=== PATIENT | male | born 1990 | race Caucasian/White ===

== ENCOUNTER 2020-04-07 10:48 | Inpatient (IN) ==
[2020-04-07 10:57] VITALS: BMI 29.8
[2020-04-07] MEDS ORDERED: ZOFRAN INJ 4 MG VIAL IVP ONE (11:28)
[2020-04-07] MEDS ORDERED: NS 1000 ML 1,000 ML IV ONE ×2 (11:28→12:33)
--- NOTE | 2020-04-07 11:28 | DR.ABDMALE ---
HPI Time seen Time Seen by Provider: 04/07/20 11:01 PCP Primary Care Physician: NONE HPI comment HPI Comment: PATIENT WITH A HISTORY OF DIVERTICULITIS, COMPLAINS OF SEVERE PAIN OVER RIGHT SIDE OF HIS ABDOMEN PAST 2 DAYS, HAS EMESIS YESTERDAY X 12 EPISODES. DENIES EMESIS TODAY, FEVER, CHILLS. HAS DIMINISHED URINE OUTPUT, DENIES DIARRHEA, Complaint Chief Complaint Doctors Comments: SEVERE ABDOMINAL PAIN X 2 DAYS Chief Complaint:: STARTED WITH SEVERE VOMITING WEDNESDAY 04/05, HE HAS HAD ABDOMINAL XRAY, LABS, UA IN [facility] 04/06 Self Treatment fo Chief Complaint: SEE ABOVE Mode of arrival Mode of Arrival: Ambulatory Timing Onset of Chief Complaint: 04/06/20 PMH PMH Past Medical History: No Past Medical History Comment: DIVERTICULITIS Past Surgical History: Yes Past Surgical History Comment: NECK SURGERY Family History History of Family Medical Conditions: Yes Family Medical History: Diabetes Mellitus, Cancer and Coronary Artery Disease Social History Does patient currently use any type of tobacco product: No Have you used tobacco products in the last 12 months: No Type of Tobacco Use: None Does any household member use tobacco: No Alcohol Use: Occasionally Do you use any recreational Drugs:: No Lives With: Dad and Mom Lives Where: Home Infectious screening In the last 2 months have you had wt loss of >10#?: NO Have you had fever, night sweats or hemotysis?: No Have you traveled outside the country in the last 6 months?: No Isolation: Standard ROS Review of Systems Constitutional: See HPI Eyes: No Symptoms Reported ENTM: No Symptoms Reported Respiratoy: No Symptoms Reported Cardiovascular: No Symptoms Reported Gastrointestinal/Abdominal: See HPI, Abdominal Pain (SEVERE RIGHT SIDED ABDOMINAL PAIN) and Vomiting Genitourinary: No Symptoms Reported Neurological: No Symptoms Reported Musculoskeletal: No Symptoms Reported Integumentary: No Symptoms Reported Hematologic/Lymphatic: No Symptoms Reported Endocrine: No Symptoms Reported Psychiatric: No Symptoms Reported All Other Systems: Reviewed and Negative PE Vital Signs Vital Signs: Temp Pulse Pulse Resp BP BP Pulse Ox 04/07/20 19:15 95 H 18 106/57 94 L 04/07/20 19:10 110 H 18 103/55 96 04/07/20 19:05 94 H 18 103/52 98 04/07/20 18:55 98.2 F 113 H 18 115/58 98 04/07/20 13:00 110 H 20 116/58 97 04/07/20 12:28 20 04/07/20 12:26 18 04/07/20 11:58 20 04/07/20 11:56 20 04/07/20 10:51 98.8 F 132 H 20 136/69 99 General Limitations: No Limitations General Appearance: Alert and In No Apparent Distress Head Head Exam: Normal Inspection Eyes Eye exam: Normal Appearance ENT ENT Exam: Normal Exam Neck Neck Exam: Normal Inspection Chest Chest Inspection: Normal Inspection Respiratory Respiratory Exam: Normal Lung Sounds Bilat Cardiovascular Cardiovascular Exam: Regular Rate and Normal Rhythm Abdominal Exam Abdominal Exam: Normal Inspection, Normal Bowel Sounds, Soft and Tenderness (MARKED RIGHT LOWER ABDOMINAL TENDERNESS OVER MCBURNEY, WITH GUARDING AND REBOUND TENDERNESS) Abdominal Tenderness: RLQ Rectal Rectal Exam: Deferred Back Back Exam: Normal Inspection and (R) CVA Tenderness (MODERATE RIGHT CVA TENDERNESS) Extremeties Extremities Exam: Normal Inspection Exam: Male: Deferred Neurologic Neurological Exam: Alert and Oriented X3 Psychiatric Psychiatric Exam: Normal Affect and Normal Mood Skin Skin Exam: Warm, Dry, Intact and Normal Color MDM Differential Diagnosis Differential Diagnosis: Appendicitis, Diverticular disease and Urolithiasis COURSE Treatment Treatment: ADMINISTERED BOLUS NORMAL SALINE 1 LITER/HR, ZOFRAN 4MG, DILAUDID 2MG IV, MARKEDLY IMPROVEMENT IN PAIN, AFTER 2 SETS OF BLOOD CULTURES ADMINISTERED ZOSYN 4.5GM IVPB Consultation Consultation Comments: DISCUSSED WITH DR CASTANO AT 1500 FOR EVALUATION IN EMERGENCY ROR Labs Reviewed Result Diagrams: 04/09/20 09:52 04/09/20 09:52 Laboratory: 04/07/20 11:59 Blood Blood Culture - Final 04/07/20 11:50 Blood Blood Culture - Final WBC 14.8 X10^3/uL (3.6-10.0) H 04/07/20 11:50 RBC 5.15 X10^6/uL (4.7-6.0) 04/07/20 11:50 Hgb 15.6 g/dL (13.5-18.0) 04/07/20 11:50 Hct 45.0 % (42.0-54.0) 04/07/20 11:50 MCV 87.4 fL (80.0-100.0) 04/07/20 11:50 MCH 30.3 pg (27.0-34.0) 04/07/20 11:50 MCHC 34.7 g/dL (33.0-35.0) 04/07/20 11:50 RDW 13.3 % (11.6-16.5) 04/07/20 11:50 Plt Count 178 X10^3/uL (150.0-450.0) 04/07/20 11:50 MPV 8.4 fL (7.4-11.0) 04/07/20 11:50 Neut % (Auto) 84.9 % (42.0-75.0) H 04/07/20 11:50 Lymph % (Auto) 8.8 % (21.0-51.0) L 04/07/20 11:50 [place] % (Auto) 6.0 % (0.0-13.0) 04/07/20 11:50 Eos % (Auto) 0.1 % (0.9-2.9) L 04/07/20 11:50 Baso % (Auto) 0.2 % (0.2-1.0) 04/07/20 11:50 Neut # (Auto) 12.6 x10^3/uL (2.2-4.8) H 04/07/20 11:50 Lymph # (Auto) 1.3 X10^3/uL (1.3-2.9) 04/07/20 11:50 [place] # (Auto) 0.9 x10^3/uL (0.3-0.8) H 04/07/20 11:50 Eos # (Auto) 0.0 x10^3/uL (0.0-0.2) 04/07/20 11:50 Baso # (Auto) 0.0 X10^3/uL (0.0-0.1) 04/07/20 11:50 Absolute Nucleated RBC 0.1 /100WBC 04/07/20 11:50 Sodium 135 mmol/L (136-145) L 04/07/20 11:50 Corrected Sodium TNP 04/07/20 11:50 Potassium 4.0 mmol/L (3.5-5.1) 04/07/20 11:50 Chloride 97 mmol/L (98-107) L 04/07/20 11:50 Carbon Dioxide 29.2 mmol/L (21-32) 04/07/20 11:50 BUN 16 mg/dL (7-18) 04/07/20 11:50 Creatinine 1.04 mg/dL (0.70-1.30) 04/07/20 11:50 Est GFR (MDRD) Af Amer > 60 (>60) 04/07/20 11:50 Est GFR (MDRD) Non-Af > 60 (>60) 04/07/20 11:50 Glucose 107 mg/dL (65-99) H 04/07/20 11:50 Calcium 8.7 mg/dL (8.5-10.1) 04/07/20 11:50 Corrected Calcium TNP 04/07/20 11:50 Total Bilirubin 0.80 mg/dL (0.2-1.0) 04/07/20 11:50 AST 23 Units/L (15-37) 04/07/20 11:50 ALT 57 Units/L (12-78) 04/07/20 11:50 Alkaline Phosphatase 60 Units/L (46-116) 04/07/20 11:50 Total Protein 7.2 g/dL (6.4-8.2) 04/07/20 11:50 Albumin 3.7 g/dL (3.4-5.0) 04/07/20 11:50 Globulin 3.5 g/dL (2.5-4.5) 04/07/20 11:50 Albumin/Globulin Ratio 1.1 Ratio (1.1-2.1) 04/07/20 11:50 Amylase 24 Units/L (25-115) L 04/07/20 11:50 Lipase 50 Units/L (73-393) L 04/07/20 11:50 Specimen Type Random urine 04/07/20 14:24 Urine Color Peggy (YELLOW) 04/07/20 14:24 Urine Appearance Slightly hazy (CLEAR) 04/07/20 14:24 Urine pH 6.0 (5.0 - 8.0) 04/07/20 14:24 Ur Specific [place] 1.025 (1.000-1.030) 04/07/20 14:24 Urine Protein 2+ (NEGATIVE) 04/07/20 14:24 Urine Glucose (UA) Negative (NEGATIVE) 04/07/20 14:24 Urine Ketones 3+ (NEGATIVE) 04/07/20 14:24 Urine Occult Blood 2+ (NEGATIVE) 04/07/20 14:24 Urine Nitrite Negative (NEGATIVE) 04/07/20 14:24 Urine Bilirubin Negative (NEGATIVE) 04/07/20 14:24 Urine Urobilinogen 1+ (NORMAL) 04/07/20 14:24 Ur Leukocyte Esterase 1+ (NEGATIVE) 04/07/20 14:24 Urine RBC 3-5 /HPF (0-3) A 04/07/20 14:24 Urine WBC 0-2 /HPF (0-5) 04/07/20 14:24 Ur Squamous Epith Cells Rare /HPF (NEGATIVE) 04/07/20 14:24 Urine Bacteria Trace /HPF (NEGATIVE) 04/07/20 14:24 Urine Mucus Few /HPF (NEGATIVE) 04/07/20 14:24 Ur Culture Indicated? No/not indicated 04/07/20 14:24 SARS CoV-2 RNA Rapid BONNIE Negative (NEGATIVE) 04/07/20 16:25 Tissue Pathology To follow 04/07/20 18:30 XRAY XRAY Interpreted by: Radiologist (ACUTE APPENDICITIS, DILATED APPENDIX 2CM, SURROUNDING INFLAMMATION) Opioid Opioid Risk Tool Total: 0 Total Score Risk Category: Low Risk Copyright: Pavan CARMICHAEL predicting aberrant behaviors Diagnosis Discharge Problem: Acute appendicitis Instructions Instructions: Hand Washing, [id number] Wound Check Laparoscopic Appendectomy, Adult, Care After, [id number] Pain Medicine Instructions, [id number] Appendicitis, [id number] Preventing Constipation After Surgery Forms: Excuse From Work Precautions for COVID19 Patient Portal Social Distancing
[2020-04-07] MEDS ORDERED: DILAUDID INJ ONE (11:40)
[2020-04-07] MEDS ORDERED: ZOFRAN INJ 4 MG VIAL ONE (11:41)
[2020-04-07] MEDS ORDERED: NS 1000 ML 1,000 ML ONE ×2 (11:41→15:07)
[2020-04-07] MEDS: DILAUDID INJ IVP STA ×2 (11:56→11:58)
[2020-04-07 12:16] LABS: BASOPHILS % (AUTO) 0.2 % (0.2-1.0); EOSINOPHILS % (AUTO) 0.1 % (0.9-2.9); HEMOGLOBIN 15.6 g/dL (13.5-18.0); LYMPHOCYTES # (AUTO) 1.3 X10^3/uL (1.3-2.9); LYMPHOCYTES % (AUTO) 8.8 % (21.0-51.0); MEAN CORPUSCULAR HEMOGLOBIN 30.3 pg (27.0-34.0); MEAN CORPUSCULAR HGB CONC 34.7 g/dL (33.0-35.0); MEAN CORPUSCULAR VOLUME 87.4 fL (80.0-100.0); MEAN PLATELET VOLUME 8.4 fL (7.4-11.0); MONOCYTES # (AUTO) 0.9 x10^3/uL (0.3-0.8); NEUTROPHILS # (AUTO) 12.6 x10^3/uL (2.2-4.8); NEUTROPHILS % (AUTO) 84.9 % (42.0-75.0); PLATELET COUNT 178 X10^3/uL (150.0-450.0); RED BLOOD COUNT 5.15 X10^6/uL (4.7-6.0); RED CELL DISTRIBUTION WIDTH 13.3 % (11.6-16.5); WHITE BLOOD COUNT 14.8 X10^3/uL (3.6-10.0)
[2020-04-07 12:26] LABS: ALANINE AMINOTRANSFERASE 57 Units/L (12-78); ALBUMIN 3.7 g/dL (3.4-5.0); ALKALINE PHOSPHATASE 60 Units/L (46-116); AMYLASE 24 Units/L (25-115); ASPARTATE AMINO TRANSFERASE 23 Units/L (15-37); BLOOD UREA NITROGEN 16 mg/dL (7-18); CALCIUM 8.7 mg/dL (8.5-10.1); CARBON DIOXIDE 29.2 mmol/L (21-32); CHLORIDE 97 mmol/L (98-107); CREATININE 1.04 mg/dL (0.70-1.30); LIPASE 50 Units/L (73-393); SODIUM 135 mmol/L (136-145); TOTAL PROTEIN 7.2 g/dL (6.4-8.2); eGFR NON BLACK RACES > 60 (>60)
[2020-04-07] MEDS ORDERED: NS 100 ML IV 100 ML IV ONE ×2 (14:22→15:09)
[2020-04-07 14:42] LABS: BILIRUBIN,URINE NEGATIVE (NEGATIVE); BLOOD/HEMOGLOBIN,URINE 2+ (NEGATIVE); GLUCOSE, URINE NEGATIVE (NEGATIVE); KETONES,URINE 3+ (NEGATIVE); LEUKOCYTE ESTERASE ,URINE 1+ (NEGATIVE); NITRITES,URINE NEGATIVE (NEGATIVE); PROTEIN,URINE 2+ (NEGATIVE); UROBILINOGEN,URINE 1+ (NORMAL)
--- NOTE | 2020-04-07 14:52 | CT ---
HISTORYSEVERE RLQ ABD PAINSTUDYABDOMEN/PELVIS WITH CONCOMPARISONNone.TECHNIQUEMultiple axial images of the abdomen and pelvis were obtained from the lung bases to the pubic symphysis after the administration of IV contrast. Dose reduction techniques including Automated Exposure Control (AEC) and adjustment of mA and kV were utilized.FINDINGSMinimal scattered subsegmental atelectasis. The heart is normal in size. Mild fatty infiltration of the liver at the falciform ligament. The gallbladder, spleen, pancreas, adrenal glands have a benign appearance. Contrast excretion into the renal conflicting system limits evaluation for nephrolithiasis. No hydronephrosis. Urinary bladder is partially decompressed. Prostate is normal in size. Mild free fluid in the pelvis. Diverticulosis of the colon without evidence of diverticulitis. Dilated appendix measuring up to 2 cm with several appendicoliths, the largest at the base measuring up to 1.1 cm. There is significant surrounding inflammatory change. No free air or abscess. Negative for bowel obstruction Non-atherosclerotic normal caliber abdominal aorta. No acute osseous abnormality.IMPRESSIONAcute appendicitis with significant surrounding inflammation but no free air or abscess. There are multiple appendicoliths.Electronically signed by: Nikita Perry (Apr 07, 2020 14:51:20)
[2020-04-07 14:58] LABS: APPEARANCE,URINE SLIGHTLY HAZY (CLEAR); COLOR,URINE AMBER (YELLOW)
[2020-04-07 14:59] LABS: BACTERIA,URINE TRACE /HPF (NEGATIVE); SQUAMOUS EPITHELIAL CELL,UR RARE /HPF (NEGATIVE)
[2020-04-07 15:00] LABS: MUCUS,URINE FEW /HPF (NEGATIVE)
[2020-04-07] MEDS ORDERED: ZOSYN VIAL 3.375 GRAMS 3.375 G in NS 100 ML IV + SPIKE MINIBAG* 100 ML IV ONE (15:02)
[2020-04-07] MEDS ORDERED: ZOSYN VIAL 3.375 GRAMS IV ONE (15:07)
[2020-04-07] MEDS ORDERED: LR 1000 ML IV 1,000 ML IV ONE ×2 (16:30→17:58)
[2020-04-07] MEDS ORDERED: SUPRANE ONE (16:35)
[2020-04-07] MEDS ORDERED: FENTANYL INJ 250 mcg ONE (16:35)
[2020-04-07] MEDS ORDERED: BETADINE SOLN ONE (18:44)
[2020-04-07] MEDS ORDERED: ZOFRAN INJ 4 MG VIAL IVP PRN (19:03)
[2020-04-07] MEDS ORDERED: PHENERGAN INJ 25 MG IM PRN (19:03)
[2020-04-07] MEDS ORDERED: BENADRYL INJ 50 MG VIAL IVP PRN (19:03)
[2020-04-07] MEDS ORDERED: DILAUDID INJ IVP PRN (19:03)
[2020-04-07] MEDS ORDERED: REGLAN INJ 10 MG VIAL IVP PRN (19:03)
[2020-04-07] MEDS: D5 1/2 NS 1000 ML 1,000 ML IV SCH (21:11)
[2020-04-07] MEDS: ZOSYN VIAL 3.375 GRAMS 3.375 G in NS 100 ML IV + SPIKE MINIBAG* 100 ML IV SCH (21:12)
[2020-04-08] MEDS: DILAUDID INJ IVP PRN ×3 (00:15→15:15)
[2020-04-08] MEDS: ZOSYN VIAL 3.375 GRAMS 3.375 G in NS 100 ML IV + SPIKE MINIBAG* 100 ML IV SCH ×3 (05:45→22:10)
--- NOTE | 2020-04-08 07:27 | DR.PROGNOT ---
Hospital Progress Notes - Progress Note for Day of: Progress Note Date: 04/08/20 - Chief Complaint Chief Complaint: s/p lap appendectomy . moderate abdominal pain . no nausea or vomiting . mild draianage in ABHINAV. afebrile . - Past Medical Family Social History Past Med/Fam/Surg Hx: No changes since H&P Allergies: Allergies No Known Drug Allergies Allergy (Verified 04/07/20 10:57) - Review Of Systems ROS: No change since H&P - Vital Signs Vital Signs: Temperature 98.9 F Pulse Rate [Left Brachial] 95 Pulse Rate 111 Respiratory Rate 20 Blood Pressure [Left Arm] 109/59 Blood Pressure 107/53 O2 Sat by Pulse Oximetry 96 - Physical Exam Oriented: Normal Eyes: Normal Ear: Normal Nose: Normal Throat: Normal Respiratory: Normal Cardiovascular: Normal : Normal GI:Auscultation: Normal GI: Tenderness: Diffuse (soft abdomen with diffuse tenderness. BS +) Mood Description: Calm Speech Pattern: Clear, Appropriate - Laboratory and Diagnostics Result Diagrams: 04/07/20 11:50 04/07/20 11:50 Labs: Laboratory WBC 14.8 X10^3/uL (3.6-10.0) H 04/07/20 11:50 RBC 5.15 X10^6/uL (4.7-6.0) 04/07/20 11:50 Hgb 15.6 g/dL (13.5-18.0) 04/07/20 11:50 Hct 45.0 % (42.0-54.0) 04/07/20 11:50 MCV 87.4 fL (80.0-100.0) 04/07/20 11:50 MCH 30.3 pg (27.0-34.0) 04/07/20 11:50 MCHC 34.7 g/dL (33.0-35.0) 04/07/20 11:50 RDW 13.3 % (11.6-16.5) 04/07/20 11:50 Plt Count 178 X10^3/uL (150.0-450.0) 04/07/20 11:50 MPV 8.4 fL (7.4-11.0) 04/07/20 11:50 Neut % (Auto) 84.9 % (42.0-75.0) H 04/07/20 11:50 Lymph % (Auto) 8.8 % (21.0-51.0) L 04/07/20 11:50 [place] % (Auto) 6.0 % (0.0-13.0) 04/07/20 11:50 Eos % (Auto) 0.1 % (0.9-2.9) L 04/07/20 11:50 Baso % (Auto) 0.2 % (0.2-1.0) 04/07/20 11:50 Neut # (Auto) 12.6 x10^3/uL (2.2-4.8) H 04/07/20 11:50 Lymph # (Auto) 1.3 X10^3/uL (1.3-2.9) 04/07/20 11:50 [place] # (Auto) 0.9 x10^3/uL (0.3-0.8) H 04/07/20 11:50 Eos # (Auto) 0.0 x10^3/uL (0.0-0.2) 04/07/20 11:50 Baso # (Auto) 0.0 X10^3/uL (0.0-0.1) 04/07/20 11:50 Absolute Nucleated RBC 0.1 /100WBC 04/07/20 11:50 Sodium 135 mmol/L (136-145) L 04/07/20 11:50 Corrected Sodium TNP 04/07/20 11:50 Potassium 4.0 mmol/L (3.5-5.1) 04/07/20 11:50 Chloride 97 mmol/L (98-107) L 04/07/20 11:50 Carbon Dioxide 29.2 mmol/L (21-32) 04/07/20 11:50 BUN 16 mg/dL (7-18) 04/07/20 11:50 Creatinine 1.04 mg/dL (0.70-1.30) 04/07/20 11:50 Est GFR (MDRD) Af Amer > 60 (>60) 04/07/20 11:50 Est GFR (MDRD) Non-Af > 60 (>60) 04/07/20 11:50 Glucose 107 mg/dL (65-99) H 04/07/20 11:50 Calcium 8.7 mg/dL (8.5-10.1) 04/07/20 11:50 Corrected Calcium TNP 04/07/20 11:50 Total Bilirubin 0.80 mg/dL (0.2-1.0) 04/07/20 11:50 AST 23 Units/L (15-37) 04/07/20 11:50 ALT 57 Units/L (12-78) 04/07/20 11:50 Alkaline Phosphatase 60 Units/L (46-116) 04/07/20 11:50 Total Protein 7.2 g/dL (6.4-8.2) 04/07/20 11:50 Albumin 3.7 g/dL (3.4-5.0) 04/07/20 11:50 Globulin 3.5 g/dL (2.5-4.5) 04/07/20 11:50 Albumin/Globulin Ratio 1.1 Ratio (1.1-2.1) 04/07/20 11:50 Amylase 24 Units/L (25-115) L 04/07/20 11:50 Lipase 50 Units/L (73-393) L 04/07/20 11:50 Specimen Type Random urine 04/07/20 14:24 Urine Color [place] (YELLOW) 04/07/20 14:24 Urine Appearance Slightly hazy (CLEAR) 04/07/20 14:24 Urine pH 6.0 (5.0 - 8.0) 04/07/20 14:24 Ur Specific [place] 1.025 (1.000-1.030) 04/07/20 14:24 Urine Protein 2+ (NEGATIVE) 04/07/20 14:24 Urine Glucose (UA) Negative (NEGATIVE) 04/07/20 14:24 Urine Ketones 3+ (NEGATIVE) 04/07/20 14:24 Urine Occult Blood 2+ (NEGATIVE) 04/07/20 14:24 Urine Nitrite Negative (NEGATIVE) 04/07/20 14:24 Urine Bilirubin Negative (NEGATIVE) 04/07/20 14:24 Urine Urobilinogen 1+ (NORMAL) 04/07/20 14:24 Ur Leukocyte Esterase 1+ (NEGATIVE) 04/07/20 14:24 Urine RBC 3-5 /HPF (0-3) A 04/07/20 14:24 Urine WBC 0-2 /HPF (0-5) 04/07/20 14:24 Ur Squamous Epith Cells Rare /HPF (NEGATIVE) 04/07/20 14:24 Urine Bacteria Trace /HPF (NEGATIVE) 04/07/20 14:24 Urine Mucus Few /HPF (NEGATIVE) 04/07/20 14:24 Ur Culture Indicated? No/not indicated 04/07/20 14:24 SARS CoV-2 RNA Rapid BONNIE Negative (NEGATIVE) 04/07/20 16:25 Tissue Pathology To follow 04/07/20 18:30 - Assessment and Plan 1: acute gangrenous appendicitis . s/p lap appendectomy . same IV ATB and IVF . on full liquid diet . - Problem Patient Problems: Patient Problems Acute appendicitis (Acute) K35.80
[2020-04-08] MEDS: D5 1/2 NS 1000 ML 1,000 ML IV SCH ×3 (07:47→19:20)
[2020-04-08 08:09] LABS: BASOPHILS % (AUTO) 0.1 % (0.2-1.0); HEMATOCRIT 39.3 % (42.0-54.0); HEMOGLOBIN 13.3 g/dL (13.5-18.0); LYMPHOCYTES # (AUTO) 1.1 X10^3/uL (1.3-2.9); LYMPHOCYTES % (AUTO) 9.5 % (21.0-51.0); MEAN CORPUSCULAR HEMOGLOBIN 29.8 pg (27.0-34.0); MEAN CORPUSCULAR HGB CONC 33.7 g/dL (33.0-35.0); MEAN CORPUSCULAR VOLUME 88.3 fL (80.0-100.0); MEAN PLATELET VOLUME 8.3 fL (7.4-11.0); MONOCYTES # (AUTO) 0.7 x10^3/uL (0.3-0.8); MONOCYTES % (AUTO) 5.9 % (0.0-13.0); NEUTROPHILS # (AUTO) 9.6 x10^3/uL (2.2-4.8); NEUTROPHILS % (AUTO) 84.5 % (42.0-75.0); PLATELET COUNT 165 X10^3/uL (150.0-450.0); RED BLOOD COUNT 4.45 X10^6/uL (4.7-6.0); RED CELL DISTRIBUTION WIDTH 13.1 % (11.6-16.5); WHITE BLOOD COUNT 11.4 X10^3/uL (3.6-10.0)
[2020-04-08 08:14] LABS: ALANINE AMINOTRANSFERASE 35 Units/L (12-78); ALBUMIN 2.9 g/dL (3.4-5.0); ALKALINE PHOSPHATASE 52 Units/L (46-116); ASPARTATE AMINO TRANSFERASE 16 Units/L (15-37); BLOOD UREA NITROGEN 14 mg/dL (7-18); CALCIUM 8.3 mg/dL (8.5-10.1); CARBON DIOXIDE 31.2 mmol/L (21-32); CHLORIDE 100 mmol/L (98-107); COR CA(FOR HYPOALB) 9.2 mg/dL (8.5-10.1); COR NA(FOR HYPERGLY) 137 mmol/L (136-145); CREATININE 1.11 mg/dL (0.70-1.30); SODIUM 136 mmol/L (136-145); TOTAL PROTEIN 6.3 g/dL (6.4-8.2); eGFR NON BLACK RACES > 60 (>60)
[2020-04-08] MEDS ORDERED: DECADRON INJ ONE (17:10)
[2020-04-08] MEDS ORDERED: DIPRIVAN VIAL ONE (17:10)
[2020-04-08] MEDS ORDERED: VERSED ONE (17:10)
[2020-04-08] MEDS ORDERED: NEOSTIGMINE INJ ONE (17:10)
[2020-04-08] MEDS ORDERED: NORCURON INJ 10 MG VIAL ONE (17:10)
[2020-04-08] MEDS ORDERED: ROBINUL ONE (17:10)
[2020-04-08] MEDS ORDERED: XYLOCAINE 2 % (PLAIN) ONE (17:10)
[2020-04-08] MEDS ORDERED: TORADOL 30 MG VIAL ONE (17:10)
[2020-04-08] MEDS ORDERED: QUELICIN (OR ANECTINE) ONE (17:10)
[2020-04-08] MEDS ORDERED: ZOFRAN INJ 4 MG VIAL ONE (17:10)
[2020-04-08] MEDS ORDERED: SUPRANE ONE (17:10)
[2020-04-09] MEDS: DILAUDID INJ IVP PRN (00:15)
[2020-04-09] MEDS: ZOSYN VIAL 3.375 GRAMS 3.375 G in NS 100 ML IV + SPIKE MINIBAG* 100 ML IV SCH (06:10)
[2020-04-09] MEDS: D5 1/2 NS 1000 ML 1,000 ML IV SCH (08:24)
[2020-04-09 10:05] LABS: BASOPHILS % (AUTO) 0.3 % (0.2-1.0); EOSINOPHILS # (AUTO) 0.1 x10^3/uL (0.0-0.2); HEMATOCRIT 39.1 % (42.0-54.0); HEMOGLOBIN 13.6 g/dL (13.5-18.0); LYMPHOCYTES # (AUTO) 1.2 X10^3/uL (1.3-2.9); LYMPHOCYTES % (AUTO) 13.3 % (21.0-51.0); MEAN CORPUSCULAR HEMOGLOBIN 30.4 pg (27.0-34.0); MEAN CORPUSCULAR HGB CONC 34.7 g/dL (33.0-35.0); MEAN CORPUSCULAR VOLUME 87.5 fL (80.0-100.0); MEAN PLATELET VOLUME 7.7 fL (7.4-11.0); MONOCYTES # (AUTO) 0.6 x10^3/uL (0.3-0.8); MONOCYTES % (AUTO) 6.8 % (0.0-13.0); NEUTROPHILS # (AUTO) 7.2 x10^3/uL (2.2-4.8); NEUTROPHILS % (AUTO) 78.6 % (42.0-75.0); PLATELET COUNT 193 X10^3/uL (150.0-450.0); RED BLOOD COUNT 4.47 X10^6/uL (4.7-6.0); RED CELL DISTRIBUTION WIDTH 12.9 % (11.6-16.5); WHITE BLOOD COUNT 9.1 X10^3/uL (3.6-10.0)
[2020-04-09 10:14] LABS: ALANINE AMINOTRANSFERASE 34 Units/L (12-78); ALBUMIN 2.8 g/dL (3.4-5.0); ALKALINE PHOSPHATASE 59 Units/L (46-116); ASPARTATE AMINO TRANSFERASE 18 Units/L (15-37); BLOOD UREA NITROGEN 8 mg/dL (7-18); CALCIUM 8.2 mg/dL (8.5-10.1); CARBON DIOXIDE 29.7 mmol/L (21-32); CHLORIDE 100 mmol/L (98-107); COR CA(FOR HYPOALB) 9.2 mg/dL (8.5-10.1); CREATININE 1.03 mg/dL (0.70-1.30); SODIUM 136 mmol/L (136-145); TOTAL PROTEIN 6.8 g/dL (6.4-8.2); eGFR NON BLACK RACES > 60 (>60)
[2020-04-09] MEDS: LOVENOX INJ 40 MG SYR SC SCH ×2 (10:17→12:20)
[2020-04-09 12:21] VITALS: BP 124/58
== END 2020-04-09 12:35 | disposition home or self-care (01) | DRG 343 ==
LOC: ER 10:48 → MED/SURG 16:20
PROVIDERS: ADMIT Surgery; ATTEND Surgery
PROC: APPYLAP (ICD-10-PCS; 2020-04-07 17:15)
DX: K35.891 Other acute appendicitis without perforation, with gangrene; R10.32 Left lower quadrant pain; K57.30 Diverticulosis of large intestine without perforation or abscess without bleeding; R11.2 Nausea with vomiting, unspecified